=== PATIENT | male | born 1975 | race Caucasian/White ===

== ENCOUNTER 2017-11-04 18:59 | Emergency (ER) | payer BC ==
[~2017-11-04] VITALS: Ht 177.8 cm; Wt 66.4 kg
[2017-11-04 19:02] VITALS: Ht 177.8 cm; Wt 66.4 kg
[2017-11-04 20:06] LABS: BASOPHIL % 1.1 % (0-2); PLATELET COUNT 196 x10^3mcL (130-400); RED CELL DISTRIBUTION WIDTH 13.4 % (11.5-14.5)
[2017-11-04 20:20] LABS: CALCIUM 8.7 mg/dL (8.5-10.1); CARBON DIOXIDE 31.3 mmol/L (21-32); CHLORIDE SERUM 106 mmol/L (98-107); CREATININE SERUM 1.1 mg/dL (0.7-1.3); GFR1 > 60 mL/min; GLUCOSE SERUM 89 mg/dL (74-106); POTASSIUM SERUM 4.1 mmol/L (3.5-5.1); SODIUM SERUM 144 mmol/L (136-145)
[2017-11-04 20:24] LABS: ALBUMIN 3.8 g/dL (3.4-5.0); ALKALINE PHOSPHATASE 84 U/L (46-116); ALT/SGPT 20 U/L (16-63); AST/SGOT 17 U/L (15-37); BILIRUBIN TOTAL 0.89 mg/dL (0.20-1.00); LIPASE 185 IU/L (73-393); TOTAL PROTEIN, SERUM 7.1 g/dL (6.4-8.2)
[2017-11-04 21:21] VITALS: BP 122/72
== END 2017-11-04 21:35 | disposition home or self-care (01) ==
LOC: ED 18:59
PROVIDERS: Emergency Medicine
DX: R07.89 Other chest pain (principal); M26.629 Arthralgia of temporomandibular joint, unspecified side; Z88.0 Allergy status to penicillin
CPT/HCPCS: 36415; Q0092